=== PATIENT | female | born 1955 | race Caucasian/White ===

== ENCOUNTER 2021-05-31 19:21 | Inpatient (IN) | payer MEDICARE, OTHER ==
[2021-05-31 20:01] LABS: #Basophils 0.1 10x3/uL (0.0-0.2); #Eosinphils 0.3 10x3/uL (0.0-0.5); #Monocytes 1.2 10x3/uL (0.0-1.1); %Basophils 0.7 % (0.0-2.0); %Eosinophils 2.2 % (0.0-6.0); %Lymphocytes 18.9 % (18.0-47.0); %Monocytes 9.2 % (0.0-10.0); %Neutrophils 67.9 % (40.0-75.0); Hemoglobin 14.4 g/dL (12.0-15.5); Mean Corpuscular HGB CONC 33.2 g/dL (32.0-36.0); Mean Corpuscular Hemoglobin 28.9 pg (27.0-33.0); Mean Platelet Volume 9.9 fl (7.4-10.4); Platelet Count 291 10x3/uL (150-450); RBC Distribution Width 13.6 % (11.5-14.5); Red Blood Cell (RBC) Count 4.99 10x6/uL (3.90-5.03); White Blood Cell (WBC) Count 13.3 10x3/uL (3.5-10.5)
[2021-05-31 20:08] LABS: ALT (SGPT) 6 U/L (8-55); AST (SGOT) 14 U/L (5-34); Alkaline Phosphatase 92 U/L (40-110); Anion Gap 16 mmol/L (10-20); BUN (Urea Nitrogen) 12 mg/dL (9.8-20.1); Bilirubin, Total 2.1 mg/dL (0.2-1.2); Calc. Creatinine Clearance 0 mL/min (70-130); Calcium 9.2 mg/dL (7.8-10.44); Carbon Dioxide 23 mmol/L (23-31); Chloride 103 mmol/L (98-107); Globulin 3.1 g/dL (2.4-3.5); Glucose 129 mg/dL (80-115); Potassium 4.2 mmol/L (3.5-5.1); Protein, Total 7.1 g/dL (5.8-8.1); Sodium 138 mmol/L (136-145)
[2021-05-31] MEDS ORDERED: Morphine 4 MG/ML VIAL ONE ×2 (20:34→23:25)
[2021-05-31] MEDS ORDERED: Enoxaparin Sodium 80 MG/0.8 ML SYRINGE ONE (21:57)
[2021-05-31] MEDS ORDERED: HYDROcodone/Acetaminophen 5/325 mg Tablet PO PRN (23:00)
[2021-05-31] MEDS ORDERED: Acetaminophen 325 MG TAB PO PRN (23:00)
[2021-05-31 23:25] LABS: SARS-CoV-2 NAA Rapid Test Not Detected (NotDetected)
[2021-06-01] MEDS: Morphine 4 MG/ML VIAL SLOW IVP PRN ×3 (03:39→20:59)
[2021-06-01 05:11] LABS: #Basophils 0.1 10x3/uL (0.0-0.2); #Eosinphils 0.3 10x3/uL (0.0-0.5); #Monocytes 1.1 10x3/uL (0.0-1.1); #Neutrophils 7.9 10x3/uL (1.5-8.4); %Basophils 0.8 % (0.0-2.0); %Eosinophils 2.2 % (0.0-6.0); %Lymphocytes 18.8 % (18.0-47.0); %Monocytes 9.1 % (0.0-10.0); %Neutrophils 68.2 % (40.0-75.0); Hemoglobin 12.5 g/dL (12.0-15.5); Mean Corpuscular HGB CONC 32.8 g/dL (32.0-36.0); Mean Corpuscular Hemoglobin 29.1 pg (27.0-33.0); Mean Corpuscular Volume 88.6 fl (81.6-98.3); Mean Platelet Volume 10.4 fl (7.4-10.4); Platelet Count 249 10x3/uL (150-450); RBC Distribution Width 13.7 % (11.5-14.5); White Blood Cell (WBC) Count 11.6 10x3/uL (3.5-10.5)
[2021-06-01 05:21] LABS: PTT 33.6 sec (22.0-33.0)
[2021-06-01 05:33] LABS: Anion Gap 13 mmol/L (10-20); BUN (Urea Nitrogen) 11 mg/dL (9.8-20.1); Calc. Creatinine Clearance 0 mL/min (70-130); Carbon Dioxide 25 mmol/L (23-31); Chloride 100 mmol/L (98-107); Glucose 115 mg/dL (80-115); Potassium 3.7 mmol/L (3.5-5.1); Sodium 134 mmol/L (136-145)
[2021-06-01] MEDS: Magnesium Oxide 250 MG TAB PO SCH ×2 (06:53→18:42)
[2021-06-01] MEDS ORDERED: Fentanyl 100 MCG/2 ML VIAL SLOW IVP SCH (07:00)
[2021-06-01] MEDS ORDERED: Hydrochlorothiazide 25 MG TAB PO SCH (09:00)
[2021-06-01] MEDS ORDERED: Losartan 25 MG TAB PO SCH (09:00)
[2021-06-01] MEDS ORDERED: Enoxaparin Sodium 80 MG/0.8 ML SYRINGE SC SCH (10:00)
[2021-06-01] MEDS: NIFEdipine XL 60 MG TAB PO SCH (10:08)
[2021-06-01] MEDS: DULoxetine 30 MG CAP PO SCH ×2 (10:08→20:59)
[2021-06-01] MEDS: Atorvastatin Calcium 40 MG TAB PO SCH (10:08)
[2021-06-01] MEDS: busPIRone HCl 15 MG TAB PO SCH (10:08)
[2021-06-01] MEDS: Furosemide 40 MG TAB PO SCH (10:09)
[2021-06-01] MEDS: Lidocaine 5% Patch TD SCH (11:59)
[2021-06-01] MEDS ORDERED: HYDROcodone/Acetaminophen 5/325 mg Tablet PO SCH (12:00)
[2021-06-01] MEDS: Doxycycline 100 MG CAP PO SCH (12:28)
[2021-06-01] MEDS ORDERED: Ketorolac Tromethamine 30 MG/ML VIAL IVP SCH (15:00)
[2021-06-01] MEDS: HYDROcodone/Acetaminophen 5/325 mg Tablet PO PRN (18:42)
[2021-06-01] MEDS: Apixaban 5 MG TAB PO SCH (20:58)
[2021-06-02] MEDS: HYDROcodone/Acetaminophen 5/325 mg Tablet PO PRN ×3 (00:56→14:39)
[2021-06-02] MEDS: Transdermal Patch Removal TOP SCH (00:58)
[2021-06-02] MEDS: Magnesium Oxide 250 MG TAB PO SCH ×2 (06:54→17:01)
[2021-06-02] MEDS: Apixaban 5 MG TAB PO SCH (08:11)
[2021-06-02] MEDS: Atorvastatin Calcium 40 MG TAB PO SCH (08:11)
[2021-06-02] MEDS: Furosemide 40 MG TAB PO SCH (08:12)
[2021-06-02] MEDS: DULoxetine 30 MG CAP PO SCH ×2 (08:12→20:31)
[2021-06-02] MEDS: Morphine 4 MG/ML VIAL SLOW IVP PRN (08:12)
[2021-06-02] MEDS: busPIRone HCl 15 MG TAB PO SCH (08:12)
[2021-06-02] MEDS: Doxycycline 100 MG CAP PO SCH (08:12)
[2021-06-02] MEDS: NIFEdipine XL 60 MG TAB PO SCH (08:12)
[2021-06-02 10:06] LABS: Hemoglobin 11.9 g/dL (12.0-15.5); Platelet Count 230 10x3/uL (150-450)
[2021-06-02] MEDS: Lidocaine 5% Patch TD SCH (11:40)
[2021-06-02] MEDS: Heparin 10,000 UNITS/ 10 ML VIAL SLOW IVP SCH (11:40)
[2021-06-02] MEDS: Heparin 25,000 units/D5W 500 ML IVPB SCH (11:41)
[2021-06-02 16:28] LABS: PTT Greater than 139.0 sec (22.0-33.0)
[2021-06-02] MEDS: Ketorolac Tromethamine 30 MG/ML VIAL IVP PRN (18:01)
[2021-06-03] MEDS: Transdermal Patch Removal TOP SCH (01:09)
[2021-06-03] MEDS: Morphine 4 MG/ML VIAL SLOW IVP PRN ×2 (03:43→08:08)
[2021-06-03 04:30] LABS: PTT 85.7 sec (22.0-33.0)
[2021-06-03] MEDS: Magnesium Oxide 250 MG TAB PO SCH ×2 (05:42→17:30)
[2021-06-03] MEDS: Furosemide 40 MG TAB PO SCH ×2 (08:08→10:27)
[2021-06-03] MEDS: busPIRone HCl 15 MG TAB PO SCH (08:08)
[2021-06-03] MEDS: Atorvastatin Calcium 40 MG TAB PO SCH (08:08)
[2021-06-03] MEDS: Doxycycline 100 MG CAP PO SCH (08:08)
[2021-06-03] MEDS: DULoxetine 30 MG CAP PO SCH ×2 (08:08→20:38)
[2021-06-03] MEDS: Heparin 25,000 units/D5W 500 ML IVPB SCH (09:30)
[2021-06-03 10:06] LABS: PTT 73.9 sec (22.0-33.0)
[2021-06-03] MEDS: Lidocaine 5% Patch TD SCH (10:16)
[2021-06-03] MEDS: NIFEdipine XL 60 MG TAB PO SCH (10:27)
[2021-06-03] MEDS ORDERED: Loperamide HCl 2 MG CAP PO PRN (10:59)
[2021-06-03] MEDS ORDERED: Cepastat Lozenges 1 LOZ PO PRN (10:59)
[2021-06-03] MEDS ORDERED: Sodium Chloride 0.65% Nasal 44 ML BOT EA NARE PRN (10:59)
[2021-06-03] MEDS ORDERED: Senokot S 8.6-50 MG TAB PO PRN (10:59)
[2021-06-03] MEDS ORDERED: Ondansetron PF 4 MG/2 ML Vial IVP PRN (10:59)
[2021-06-03] MEDS ORDERED: hydrALAZINE 20 MG/ML VIAL SLOW IVP PRN (10:59)
[2021-06-03] MEDS ORDERED: Ondansetron ODT 4 MG TAB PO PRN (10:59)
[2021-06-03] MEDS ORDERED: Bisacodyl 5 MG TAB PO PRN (10:59)
[2021-06-03] MEDS ORDERED: Loratadine 10 MG TAB PO PRN (10:59)
[2021-06-03] MEDS ORDERED: GUAIFENESIN SF SOLN 200 MG/10 ML UDCUP PO PRN (10:59)
[2021-06-03] MEDS ORDERED: Calcium Carbonate 500 MG ChewTAB PO PRN (10:59)
[2021-06-03] MEDS ORDERED: Simethicone Chewable 80 MG TAB PO PRN (11:00)
[2021-06-03] MEDS: HYDROcodone/Acetaminophen 5/325 mg Tablet PO PRN (22:33)
[2021-06-04] MEDS: Transdermal Patch Removal TOP SCH ×2 (01:01→23:00)
[2021-06-04] MEDS: Ketorolac Tromethamine 30 MG/ML VIAL IVP PRN (01:01)
[2021-06-04] MEDS: Heparin 25,000 units/D5W 500 ML IVPB SCH (05:35)
[2021-06-04 05:40] LABS: ALT (SGPT) 37 U/L (8-55); AST (SGOT) 24 U/L (5-34); Alkaline Phosphatase 91 U/L (40-110); Anion Gap 12 mmol/L (10-20); BUN (Urea Nitrogen) 10 mg/dL (9.8-20.1); Bilirubin, Total 0.5 mg/dL (0.2-1.2); Calc. Creatinine Clearance 88 mL/min (70-130); Calcium 8.5 mg/dL (7.8-10.44); Carbon Dioxide 31 mmol/L (23-31); Chloride 96 mmol/L (98-107); Globulin 2.6 g/dL (2.4-3.5); Glucose 91 mg/dL (80-115); Magnesium 1.9 mg/dL (1.6-2.6); Phosphorus 2.9 mg/dL (2.3-4.7); Potassium 3.2 mmol/L (3.5-5.1); Protein, Total 5.6 g/dL (5.8-8.1); Sodium 136 mmol/L (136-145)
[2021-06-04 05:44] LABS: #Eosinphils 0.5 10x3/uL (0.0-0.5); #Monocytes 0.7 10x3/uL (0.0-1.1); #Neutrophils 4.5 10x3/uL (1.5-8.4); %Basophils 0.4 % (0.0-2.0); %Eosinophils 6.9 % (0.0-6.0); %Lymphocytes 24.6 % (18.0-47.0); %Monocytes 9.2 % (0.0-10.0); %Neutrophils 58.4 % (40.0-75.0); Hemoglobin 10.7 g/dL (12.0-15.5); Mean Corpuscular HGB CONC 32.5 g/dL (32.0-36.0); Mean Corpuscular Hemoglobin 28.8 pg (27.0-33.0); Mean Corpuscular Volume 88.4 fl (81.6-98.3); Mean Platelet Volume 10.2 fl (7.4-10.4); Platelet Count 270 10x3/uL (150-450); RBC Distribution Width 13.2 % (11.5-14.5); Red Blood Cell (RBC) Count 3.72 10x6/uL (3.90-5.03); White Blood Cell (WBC) Count 7.7 10x3/uL (3.5-10.5)
[2021-06-04] MEDS: Morphine 4 MG/ML VIAL SLOW IVP PRN ×3 (05:57→20:25)
[2021-06-04] MEDS: Magnesium Oxide 250 MG TAB PO SCH ×2 (05:58→17:42)
[2021-06-04 06:10] LABS: D-Dimer Test 3.47 mg/L FEU (0.19-0.50)
[2021-06-04 06:15] LABS: PTT 74.2 sec (22.0-33.0)
[2021-06-04] MEDS ORDERED: Potassium Chloride 20 MEQ TAB PO SCH (08:00)
[2021-06-04] MEDS: busPIRone HCl 15 MG TAB PO SCH (08:49)
[2021-06-04] MEDS: Atorvastatin Calcium 40 MG TAB PO SCH (08:50)
[2021-06-04] MEDS: DULoxetine 30 MG CAP PO SCH ×2 (08:50→20:26)
[2021-06-04] MEDS: Doxycycline 100 MG CAP PO SCH (08:50)
[2021-06-04] MEDS: Lidocaine 5% Patch TD SCH (10:17)
[2021-06-04 10:31] LABS: Platelet Count 260 10x3/uL (150-450)
[2021-06-04] MEDS ORDERED: Ferrous Sulfate 325 MG TAB PO SCH (17:00)
[2021-06-05] MEDS: Heparin 25,000 units/D5W 500 ML IVPB SCH (01:18)
[2021-06-05] MEDS: Morphine 4 MG/ML VIAL SLOW IVP PRN ×3 (01:30→10:14)
[2021-06-05 02:53] VITALS: BMI 32.8
[2021-06-05 06:53] LABS: #Basophils 0.1 10x3/uL (0.0-0.2); #Eosinphils 0.7 10x3/uL (0.0-0.5); #Monocytes 0.6 10x3/uL (0.0-1.1); #Neutrophils 3.8 10x3/uL (1.5-8.4); %Basophils 0.7 % (0.0-2.0); %Eosinophils 9.6 % (0.0-6.0); %Lymphocytes 24.8 % (18.0-47.0); %Monocytes 8.8 % (0.0-10.0); %Neutrophils 55.1 % (40.0-75.0); Mean Corpuscular HGB CONC 31.3 g/dL (32.0-36.0); Mean Corpuscular Hemoglobin 28.4 pg (27.0-33.0); Mean Corpuscular Volume 90.7 fl (81.6-98.3); Mean Platelet Volume 10.3 fl (7.4-10.4); Platelet Count 265 10x3/uL (150-450); RBC Distribution Width 13.3 % (11.5-14.5); Red Blood Cell (RBC) Count 3.87 10x6/uL (3.90-5.03)
[2021-06-05] MEDS: Magnesium Oxide 250 MG TAB PO SCH (06:56)
[2021-06-05] MEDS: Heparin 10,000 UNITS/ 10 ML VIAL SLOW IVP SCH (07:16)
[2021-06-05 07:21] LABS: Anion Gap 14 mmol/L (10-20); BUN (Urea Nitrogen) 8 mg/dL (9.8-20.1); Calc. Creatinine Clearance 80 mL/min (70-130); Calcium 9.2 mg/dL (7.8-10.44); Carbon Dioxide 29 mmol/L (23-31); Chloride 98 mmol/L (98-107); Glucose 125 mg/dL (80-115); Potassium 3.9 mmol/L (3.5-5.1); Sodium 137 mmol/L (136-145)
[2021-06-05] MEDS: busPIRone HCl 15 MG TAB PO SCH (08:46)
[2021-06-05] MEDS: Atorvastatin Calcium 40 MG TAB PO SCH (08:46)
[2021-06-05] MEDS: DULoxetine 30 MG CAP PO SCH (08:46)
[2021-06-05] MEDS: Doxycycline 100 MG CAP PO SCH (08:47)
[2021-06-05] MEDS ORDERED: Apixaban 5 MG TAB PO SCH (09:00)
[2021-06-05] MEDS: Lidocaine 5% Patch TD SCH (10:14)
[2021-06-05 12:29] VITALS: BP 126/74; TEMP 97.1
[2021-06-05] MEDS: HYDROcodone/Acetaminophen 5/325 mg Tablet PO PRN (14:01)
== END 2021-06-05 17:25 | disposition home or self-care (01) | DRG 175 ==
LOC: CSHERS 19:21 → CSHTELE 06-01 01:22
PROVIDERS: ADMIT Family Medicine; ATTEND Internal Medicine
DX: I26.99 Other pulmonary embolism without acute cor pulmonale (principal); J96.01 Acute respiratory failure with hypoxia; I82.433 Acute embolism and thrombosis of popliteal vein, bilateral; I82.413 Acute embolism and thrombosis of femoral vein, bilateral; Z20.822 Contact with and (suspected) exposure to COVID-19; I10 Essential (primary) hypertension; F17.210 Nicotine dependence, cigarettes, uncomplicated; D64.89 Other specified anemias; Z96.653 Presence of artificial knee joint, bilateral; E78.5 Hyperlipidemia, unspecified; J44.9 Chronic obstructive pulmonary disease, unspecified; Z85.3 Personal history of malignant neoplasm of breast; Z79.82 Long term (current) use of aspirin; Z79.899 Other long term (current) drug therapy; Z90.49 Acquired absence of other specified parts of digestive tract; Z90.710 Acquired absence of both cervix and uterus; Z98.890 Other specified postprocedural states; Z95.5 Presence of coronary angioplasty implant and graft; Z71.6 Tobacco abuse counseling
CPT/HCPCS: 36415; 71045; 71275; 80048; 80053; 82274; 83735; 84100; 84484; 85014; 85018; 85025; 85049; 85379; 85610; 85730; 93005; 93306; 93970; 94760; J1644; J1650; J1885; J2270; J3010; U0002

== ENCOUNTER 2022-01-19 17:28 | Emergency (ER) | payer MEDICARE, OTHER ==
[2022-01-19] MEDS ORDERED: HYDROcodone/Acetaminophen 5/325 mg Tablet ONE (18:16)
[2022-01-19] MEDS ORDERED: Morphine 4 MG/ML VIAL ONE (20:18)
[2022-01-19] MEDS ORDERED: Ondansetron PF 4 MG/2 ML Vial ONE (20:19)
== END 2022-01-19 21:21 | disposition short-term general hospital (02) ==
LOC: CSHERS 17:28
DX: S32.119A Unspecified Zone I fracture of sacrum, initial encounter for closed fracture (principal); R15.9 Full incontinence of feces; R32 Unspecified urinary incontinence; F17.210 Nicotine dependence, cigarettes, uncomplicated; I10 Essential (primary) hypertension; E78.00 Pure hypercholesterolemia, unspecified; W19.XXXA Unspecified fall, initial encounter
CPT/HCPCS: 72131; 96374; 96375; J2270; J2405